=== PATIENT | male | born 2000 | race Caucasian/White ===

== ENCOUNTER 2021-07-02 10:42 | Emergency (ER) | payer OTHER ==
[~2021-07-02 10:42] MED LIST: AMOXICILLIN500 MG PO; AUGMENTIN 875-1 EACH PO; MEDROL 4MG DOSEP4 MG PO; TESSALON PERLE100 MG PO; VENTOLIN HFA IN18 GM INH
[2021-07-02 13:42] LABS: BASOPHIL 0.4 % (0-2); EOSINOPHIL 0.9 % (0-5); HCT 48.9 % (42.0-52.0); HGB 15.9 g/dl (13.2-18.0); LYMPHOCYTE 25.6 % (15-48); MCH 29.8 pg (25.0-31.0); MCHC 32.5 g/dL (32.0-36.0); MCV 91.7 fL (78.0-100.0); MONOCYTE 9.1 % (0-12); MPV 8.9 fL (6.0-9.5); NEUTROPHIL 63.8 % (41-80); NRBC 0; PLT 364 K/uL (150-400); RBC 5.33 M/uL (4.70-6.00); RDW 12.1 % (11.5-14.0); WBC 8.2 K/uL (4.0-10.5)
[2021-07-02 14:10] LABS: ALBUMIN 3.8 g/dL (3.4-5.0); BILIRUBIN - TOTAL 0.4 mg/dL (0.2-1.0); BUN/CREAT RATIO (CALC) 12.8 RATIO; CREATININE 0.86 mg/dL (0.67-1.17); GLOBULIN (CALCULATION) 4.3 g/dL; POTASSIUM 4.1 mmol/L (3.5-5.1); TOTAL PROTEIN 8.1 g/dL (6.4-8.2)
[2021-07-02] MEDS ORDERED: PRINIVIL10 MG PO (14:46)
== END 2021-07-02 15:20 | disposition home or self-care (01) ==
LOC: FER 10:42
PROVIDERS: Nurse Practitioner Family
DX: I10 Essential (primary) hypertension (principal); Z88.1 Allergy status to other antibiotic agents
CPT/HCPCS: 36415; 71045; 80053; 85025